=== PATIENT | female | born 1985 | race Caucasian/White ===

== ENCOUNTER 2022-06-19 13:16 | Outpatient (CLI) | payer BC | END 2022-06-19 13:17 | disposition home or self-care (01) | LOC: NM 13:16 | PROVIDERS: ATTEND Surgery | DX: R10.11 Right upper quadrant pain (principal) | CPT/HCPCS: 78227; A9537; A9541 ==

== ENCOUNTER 2022-06-25 11:37 | Outpatient (CLI) | payer BC ==
[2022-06-25 12:46] LABS: #Eosinphils 0.1 10x3/uL (0.0-0.5); #Monocytes 0.3 10x3/uL (0.0-1.1); #Neutrophils 3.3 10x3/uL (1.5-8.4); %Basophils 0.7 % (0.0-2.0); %Eosinophils 2.3 % (0.0-6.0); %Monocytes 5.1 % (0.0-10.0); %Neutrophils 58.7 % (40.0-75.0); Hemoglobin 9.9 g/dL (12.0-15.5); Mean Corpuscular HGB CONC 30.2 g/dL (32.0-36.0); Mean Corpuscular Hemoglobin 19.9 pg (27.0-33.0); Mean Platelet Volume 10.5 fl (7.4-10.4); Platelet Count 413 10x3/uL (150-450); RBC Distribution Width 18.9 % (11.5-14.5); Red Blood Cell (RBC) Count 4.97 10x6/uL (3.90-5.03); White Blood Cell (WBC) Count 5.7 10x3/uL (3.5-10.5)
[2022-06-25 13:00] LABS: ALT (SGPT) 8 U/L (8-55); AST (SGOT) 13 U/L (5-34); Albumin 4.2 g/dL (3.5-5.0); Alkaline Phosphatase 34 U/L (40-110); Anion Gap 12 mmol/L (10-20); BUN (Urea Nitrogen) 12 mg/dL (7.0-18.7); Bilirubin, Direct 0.2 mg/dL (0.1-0.3); Bilirubin, Total 0.4 mg/dL (0.2-1.2); Calc. Creatinine Clearance 0 mL/min (70-130); Calcium 9.7 mg/dL (7.8-10.44); Carbon Dioxide 22 mmol/L (22-29); Chloride 106 mmol/L (98-107); Estimated GFR 86; Glucose 78 mg/dL (70-105); Potassium 4.1 mmol/L (3.5-5.1); Protein, Total 6.9 g/dL (6.0-8.3); Sodium 136 mmol/L (136-145)
[2022-06-25 13:06] LABS: Large Platelets SLIGHT; Microcytosis SLIGHT = 6-15 cells (100X) (0-5/hpf); Ovalocytes SLIGHT = 2-5 cells (100X) (0-1/hpf); Platelet Morphology Comment Appears Adequate
== END 2022-06-25 11:38 | disposition home or self-care (01) ==
LOC: LABBT 11:37
PROVIDERS: ATTEND Surgery
DX: Z01.812 Encounter for preprocedural laboratory examination (principal)
CPT/HCPCS: 80048; 80076; 85025

== ENCOUNTER 2022-06-28 06:03 | Day surgery (SDC) | payer BC ==
[2022-06-26 12:18] VITALS: BMI 30.5
[2022-06-28] MEDS ORDERED: Bupivacaine/Epinephrine 0.25% 30 ML VIAL ONE (06:34)
[2022-06-28] MEDS ORDERED: Fentanyl 250 MCG/5 ML VIAL ONE (06:47)
[2022-06-28] MEDS ORDERED: Levofloxacin 500 mg/D5W 100 ml Premix Bag ONE (07:22)
[2022-06-28] MEDS ORDERED: Midazolam HCl 2 mg/2 ml Vial ONE (07:30)
[2022-06-28] MEDS ORDERED: PROPOFOL 200 MG/20 ML VIAL ONE (07:47)
[2022-06-28] MEDS ORDERED: Ondansetron PF 4 MG/2 ML Vial ONE ×2 (07:47→09:26)
[2022-06-28] MEDS ORDERED: Dexamethasone 20 MG/5 ML VIAL ONE (07:47)
[2022-06-28] MEDS ORDERED: Rocuronium Bromide 10 MG/ML (10ML VIAL) ONE (07:47)
[2022-06-28] MEDS ORDERED: PHENYLEPHRINE-NS 100 MCG/ML 10 ML SYRINGE ONE (07:47)
[2022-06-28] MEDS ORDERED: NEOSTIGMINE 3 MG/3 ML SYR 3 MG/3 ML SYRINGE ONE (07:47)
[2022-06-28] MEDS ORDERED: ePHEDrine 50 MG/ML VIAL ONE (07:47)
[2022-06-28] MEDS ORDERED: Glycopyrrolate 0.2 MG/ML 5 ML SYRINGE ONE (07:47)
[2022-06-28] MEDS ORDERED: Lidocaine 1% PF 5 ML VIAL ONE (07:47)
[2022-06-28] MEDS ORDERED: SUGAMMADEX SODIUM 200 MG/2 ML VIAL ONE (09:11)
[2022-06-28] MEDS ORDERED: Fentanyl 100 MCG/2 ML VIAL ONE ×3 (09:31→11:00)
[2022-06-28] MEDS ORDERED: Promethazine HCl 25 MG/ML VIAL ONE (09:39)
[2022-06-28] MEDS ORDERED: Ketorolac Tromethamine 30 MG/ML VIAL ONE (09:46)
[2022-06-28] MEDS ORDERED: Simethicone Chewable 80 MG TAB PO PRN (10:05)
[2022-06-28] MEDS ORDERED: Simethicone Chewable 80 MG TAB PO SCH (10:15)
[2022-06-28] MEDS ORDERED: HYDROcodone/Acetaminophen 5/325 mg Tablet ONE (11:47)
== END 2022-06-28 12:44 | disposition home or self-care (01) ==
LOC: SDC 06:03
PROVIDERS: ATTEND Surgery
PROC: 0BQT4ZZ Repair Diaphragm, Percutaneous Endoscopic Approach (ICD-10-PCS; principal; 2022-06-28)
PROC: 0FT44ZZ Resection of Gallbladder, Percutaneous Endoscopic Approach (ICD-10-PCS; principal; 2022-06-28)
PROC: 8E0W4CZ Robotic Assisted Procedure of Trunk Region, Percutaneous Endoscopic Approach (ICD-10-PCS; principal; 2022-06-28)
DX: K80.10 Calculus of gallbladder with chronic cholecystitis without obstruction (principal); K44.9 Diaphragmatic hernia without obstruction or gangrene; J45.909 Unspecified asthma, uncomplicated; E66.9 Obesity, unspecified; Z68.30 Body mass index [BMI] 30.0-30.9, adult; Z79.3 Long term (current) use of hormonal contraceptives; Z79.899 Other long term (current) drug therapy; Z88.0 Allergy status to penicillin; Z88.2 Allergy status to sulfonamides; Z88.7 Allergy status to serum and vaccine; Z91.040 Latex allergy status; Z98.84 Bariatric surgery status
CPT/HCPCS: 88304; 93005; 93010; C1776; J1100; J1885; J1956; J2250; J2405; J2550; J2704; J3010; J3490

== ENCOUNTER 2022-07-03 09:53 | Outpatient (CLI) | payer BC | END 2022-07-03 09:54 | disposition home or self-care (01) | LOC: BICRAD 09:53 | PROVIDERS: ATTEND Surgery | DX: R06.00 Dyspnea, unspecified (principal) | CPT/HCPCS: 71046 ==

== ENCOUNTER 2025-03-11 13:39 | Outpatient (CLI) | payer BC | END 2025-03-11 13:40 | disposition home or self-care (01) | LOC: BICMAMMO 13:39 | PROVIDERS: ATTEND Physician Assistant | DX: Z12.31 Encounter for screening mammogram for malignant neoplasm of breast (principal) | CPT/HCPCS: 77063; 77067 ==